=== PATIENT | female | born 1950 ===

== ENCOUNTER 2017-04-20 09:10 | Day surgery (SDC) | payer MEDICARE ==
[~2017-04-20 09:10] MED LIST: Midazolam* 1 MG/ML 2 ML VIAL (2 MG) ONE
[2017-04-20] MEDS ORDERED: Povidone Iodine 5% OPTH* 30 ML BTL ONE (09:46)
[2017-04-20] MEDS ORDERED: Phenylephrine 2.5% OPTH.SOL* 2 ML BTL ONE (09:46)
[2017-04-20] MEDS ORDERED: Ketorolac 0.5% OPHTH (NF) 0.5 % 5 ML BTL ONE (09:46)
[2017-04-20] MEDS ORDERED: Neomycin/Polymy/Dex OPTH.SUSP* MAXITROL 0.1% 5 ML ONE (09:46)
[2017-04-20] MEDS ORDERED: Lidocaine 2% EPI 1:200000 MPF* 20 ML VIAL ONE (09:46)
[2017-04-20] MEDS ORDERED: Trypan Blue 0.06% SOL* 0.5 ML BTL ONE (09:46)
[2017-04-20] MEDS ORDERED: acetaZOLAMIDE TAB* 250 MG ONE (09:46)
[2017-04-20] MEDS ORDERED: Proparacaine 0.5% OPHTH.SOL* 15 ML BTL ONE (09:46)
[2017-04-20] MEDS ORDERED: Cyclopentolate 1% OPTH.SOL* 2 ML BTL ONE (09:46)
[2017-04-20] MEDS ORDERED: Lidocaine 1% MPF* 2 ML VIAL ONE (09:46)
[2017-04-20] MEDS ORDERED: Midazolam* 1 MG/ML 2 ML VIAL (2 MG) ONE (11:51)
--- NOTE | 2017-04-20 13:35 | OP ---
ADDENDUM NOW INCLUDED ON THIS REPORT DATE OF OPERATION: 04/20/2017 - [facility] DATE OF : 1950. SURGEON: Holger Brennan M.D. PREOPERATIVE DIAGNOSIS: Cataract right eye. POSTOPERATIVE DIAGNOSIS: Cataract right eye. OPERATIVE PROCEDURE: Extracapsular cataract extraction with intraocular lens implant right eye. DESCRIPTION OF PROCEDURE: The patient was brought to the operating room after being given 1/2% Alcaine with epinephrine drops in the preoperative area. The eye was prepped and draped in the usual sterile fashion. Sterile drape and eyelid speculum were placed. Again, topical 1/2% Alcaine with epinephrine was given. A paracentesis incision was made at the 9 o'clock position with the No.75 blade. Clear cornea incision 2.2 x 2.2-mm was created at the 12 o'clock position starting at the anterior limbus using the 2.2-mm keratome. The anterior chamber was irrigated with 0.4 mL of 1% non-preservative intracameral lidocaine and filled with DisCoVisc. A capsulorrhexis was completed using the cystotome and the Utrata forceps. Hydrodissection was performed with balanced salt solution. The lens nucleus was removed with the Phacoemulsification handpiece without incident. Cortex was removed with the irrigation-aspiration handpiece. The capsular bag was re-inflated using DisCoVisc, and an [id number] 21 implant was inserted with the shooter. The irrigation-aspiration handpiece was used to remove all residual DisCoVisc. The eye was refilled with balanced salt solution and the wound checked and found to be watertight. Topical Maxitrol drops were given. ADDENDUM: Because of a white cortex, VisionBlue was used to stain. The anterior capsule prior to capsulorrhexis and the indication for complex cataract surgery is white cataract requiring capsular dye. [id number]/[facility] #: [id number]/[facility] #: [id number] [facility]OSPITALJeffrey
--- NOTE | 2017-04-23 03:00 | OP ---
OPERATIVE REPORT: ADDENDUM: Because of a white cortex, VisionBlue was used to stain. The anterior capsule prior to capsulorrhexis and the indication for complex cataract surgery is white cataract requiring capsular dye. [id number]/[facility] #: [id number] MTDD
[2017-04-26] MEDS ORDERED: Buffered Lidocaine 0.9% SYRIN* 5 ML/SYR SYRINGE INTRADERM ONE (11:05)
[2017-04-27] MEDS ORDERED: Acetaminophen TAB* 325 MG PO PRN (05:00)
[2017-04-27 09:17] VITALS: BP 159/73
== END 2017-04-20 12:22 | disposition home or self-care (01) ==
LOC: OREAST 09:10
PROVIDERS: ATTEND Specialist
DX: H25.11 Age-related nuclear cataract, right eye (principal); I10 Essential (primary) hypertension; J45.909 Unspecified asthma, uncomplicated; Z68.41 Body mass index [BMI] 40.0-44.9, adult
CPT/HCPCS: A9270-GY; J2250; V2632

== ENCOUNTER → 2017-04-27 06:50 | Day surgery (SDC) | payer MEDICARE ==
[2017-04-20 12:58] VITALS: BP 163/63
[~2017-04-27 06:50] MED LIST changes: +Acetaminophen TAB* 325 MG PO PRN; +Buffered Lidocaine 0.9% SYRIN* 5 ML/SYR SYRINGE INTRADERM ONE; +Cyclopentolate 1% OPTH.SOL* 2 ML BTL ONE; +Ketorolac 0.5% OPHTH (NF) 0.5 % 5 ML BTL ONE; +Lidocaine 1% MPF* 2 ML VIAL ONE; +Lidocaine 2% EPI 1:200000 MPF* 20 ML VIAL ONE; +Neomycin/Polymy/Dex OPTH.SUSP* MAXITROL 0.1% 5 ML ONE; +Phenylephrine 2.5% OPTH.SOL* 2 ML BTL ONE; +Povidone Iodine 5% OPTH* 30 ML BTL ONE; +Proparacaine 0.5% OPHTH.SOL* 15 ML BTL ONE; +Trypan Blue 0.06% SOL* 0.5 ML BTL ONE; +acetaZOLAMIDE TAB* 250 MG ONE
--- NOTE | 2017-04-27 10:04 | OP ---
DATE OF OPERATION: 04/27/2017. DATE OF : 1950. SURGEON: Holger Brennan M.D. PREOPERATIVE DIAGNOSIS: Cataract left eye. POSTOPERATIVE DIAGNOSIS: Cataract left eye. OPERATIVE PROCEDURE: Extracapsular cataract extraction with intraocular lens implant left eye. PROCEDURE: The patient was brought to the operating room after being given 1/2% Alcaine with epineph rine drops in the preoperative area. The eye was prepped and draped in the usual sterile fashion. S terile drape and eyelid speculum were placed. Again, topical 1/2% Alcaine with epinephrine was given . A paracentesis incision was made at the 3 o'clock position with the No.75 blade. Clear cornea inc ision 2.2 x 2.2-mm was created at the 6 o'clock position starting at the anterior limbus using the 2. 2-mm keratome. The anterior chamber was irrigated with 0.4 mL of 1% non-preservative intracameral li docaine and filled with DisCoVisc. A capsulorrhexis was completed using the cystotome and the Utrata forceps. Hydrodissection was performed with balanced salt solution. The lens nucleus was removed wi th the Phacoemulsification handpiece without incident. Cortex was removed with the irrigation-aspira tion handpiece. The capsular bag was re-inflated using DisCoVisc and an SN60WF 21.5 implant was inse rted with the shooter. VisionBlue was used to stain the anterior capsule prior to capsulorrhexis. Th e irrigation-aspiration handpiece was used to remove all residual DisCoVisc. The eye was refilled wi th balanced salt solution and the wound checked and found to be watertight. Topical Maxitrol drops w ere given. Indication for complex cataract surgery: White cataract requiring capsular dye. [id number]/[facility] #: [id number]
== END | disposition home or self-care (01) ==
LOC: OREAST 06:50
PROVIDERS: ATTEND Specialist
DX: H25.12 Age-related nuclear cataract, left eye (principal); J45.909 Unspecified asthma, uncomplicated; I10 Essential (primary) hypertension; E78.5 Hyperlipidemia, unspecified; Z68.39 Body mass index [BMI] 39.0-39.9, adult
CPT/HCPCS: A9270-GY; J2250; V2632